=== PATIENT | female | born 1965 | race Caucasian/White ===

== ENCOUNTER 2016-10-06 04:57 | Day surgery (SDC) | payer OTHER, BC ==
[2016-10-01 15:00] VITALS: BMI 27.5
--- NOTE | 2016-10-05 15:26 | HP ---
[facility] - Chief Complaint Chief Complaint: This patient c/o very heavy periods causing anemia. The patient was also noted to have fibroids of the uterus. History of Present Illness: This patient has a long history of heavy vaginal bleeding causing anemia . 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: Alzheimer's, CVA, Dementia, Migraine, Multiple Sclerosis, Peripheral Neuropathy, Parkinson's, Seizure, Syncope, TIA, Vertigo, Other Cardiovascular: No: AFIB, Aneurysm, Aortic Insufficiency, Aortic Stenosis, CAD, CHF, Deep Vein Thrombosis, HTN, Hyperlipdemia, [place], Mitral Insufficiency, Mitral Stenosis, Murmur, Pulmonary Hypertension, Other Pulmonary: No: Asthma, Bronchitis, Cancer, COPD, O2 Dependent, Pneumonia, Previously Intubated, Pulmonary Embolus, Pulmonary Fibrosis, Sleep Apnea, Other Gastrointestinal: No: Ascites, Cancer, Constipation, Crohn's Disease, Diverticulitis, Diverticulosis, Esophageal Varices, Gastritis, GERD, GI Bleed, Hemorrhoids, Hiatal Hernia, Inflamatory Bowel Disease, Irritable Bowel Disease, Pancreatitis, Peptic Ulcer Disease, Ulcerative Colitis, Other Hepatobiliary: No: Cirrhosis, Cholelithiasis, Cholecystitis, Choledocholithiasis , Hepatitis A, Hepatitis B, Hepatitis C, Other Renal/: No: Renal Failure, Renal Inusuff, BPH, Cancer, Hematuria, Hemodialysis , Neurogenic Bladder, Renal Calculi, UTI, Other Reproductive: Yes: Fibroids ...LMP: 09/17/16 ...: No ...: 0 Heme/Onc: Yes: Anemia Infectious Disease: No: AIDS, C-Diff, Herpes Zoster, HIV, MRSA, STD's, Tuberculosis, VREF, Other Musculoskeletal: No: Bursitis, Chronic low back pain, Hemiparesis, Hemiplegia, Osteoarthritis, Paraplegia, Other Rheumatology: No: Fibromyalgia, Gout, Lupus, Rheumatoid Arthritis, Sarcoidosis, Vasculitis, Other ENT: No: Allergic Rhinitis, Sinusitis, Other Endocrine: Yes: Diabetes Mellitus Dermatology: No: Basal Cell, Cellulitis, Eczema, Melanoma, Psoriasis, Squamous Cell, Other Additional Medical History: Pt has a history of cardiac disease and was cleared for procedure by Dr. Chamorro.Pt also had multiple knee surgeries. - Current Medications Current Medications: Home Medications Medication Instructions Recorded Metformin HCl 1,700 mg PO DAILY 10/01/16 Metformin HCl 850 mg PO HS 10/01/16 Atorvastatin Ca [Lipitor] 40 mg PO DAILY 10/02/16 Gabapentin [Neurontin -] 100 mg PO TID 10/02/16 Glimepiride [Amaryl -] 4 mg PO BID 10/02/16 Glipizide ER 20 mg PO DAILY 10/02/16 Hydrocodone/Acetaminophen [Vicodin 1 tab PO PRN PRN 10/02/16 Es 7.5-300 mg Tablet] Linagliptin [Tradjenta] 5 mg PO DAILY 10/02/16 Metoprolol Succinate 50 mg PO BID 10/02/16 Omeprazole 40 mg PO BID 10/02/16 Zolpidem Tartrate [Ambien] 10 mg PO HS 10/02/16 Satellite Physical Exam - Physical Examination General Appearance: Well Nourished, Well Developed, Alert & Oriented x3 ENT: Clear, No Discharge, No masses Lung: Clear to auscultation Heart: Regular rate & rhythm, Normal S1, Normal S2 Breasts: Soft, Non-Tender, No masses bilaterally Abdomen: Soft, No tenderness, No CVA Extremities: No edema, No tenderness/swelling Pelvic Exam: Within normal limits External Genitalia, Within normal limits Vagina, Within normal limits Cervix, Within normal limits [place], Other Uterus (fibroids) Neurological: Intact, Alert, Oriented Satellite Impression/Plan - Impression/Plan Impression: menorrhagia with fibroids of uterus Operative Procedure: Hysteroscopy with D/C Date to be Performed: 10/06/16
[2016-10-06] MEDS ORDERED: MIDAZOLAM HCL 2 MG/2 ML SINGLE DOSE VIAL ONE (07:51)
[2016-10-06] MEDS ORDERED: ONDANSETRON 4 MG/2 ML VIAL ONE (09:23)
--- NOTE | 2016-10-06 09:36 | HP ---
DATE OF ADMISSION: 10/06/2016 PREOPERATIVE DIAGNOSIS: Menorrhagia, fibroid uterus. POSTOPERATIVE DIAGNOSIS: Menorrhagia, fibroid uterus. OPERATIVE PROCEDURE: Hysteroscopy with dilation and curettage. SURGEON: Trena Macedo MD ANESTHESIA: MAC given by anesthesiologist. ESTIMATED BLOOD LOSS: Approximately 5 mL. DESCRIPTION OF PROCEDURE: The patient was brought to the operating room and placed in the supine position, given anesthesia by the anesthesiologist, placed in the lithotomy position. She was prepped and draped in the usual manner for a dilation and curettage, hysteroscopy. The patient was examined. Uterus was noted to be markedly enlarged. Adnexa negative. The anterior lip of the cervix was grasped with a tenaculum. Uterus was sounded to 12 cm. The cervix was dilated with Elliott dilators. Hysteroscopy was performed. The endometrial lining appeared within the normal limits. There were no polyps noted, no fibroids noted. A dilation and curettage was carried out with a medium-sized curette. Tissue was obtained and sent to Pathology for analysis. An ECC was then obtained also by a medium-sized curette. The tissue was sent from the ECC to Pathology for analysis. The patient tolerated the procedure well. Hemostasis was good. The tenaculum was removed from the cervix, and the patient was then awakened by the anesthesiologist. The estimated blood loss was about 5 mL. The patient tolerated the procedure well and was transferred to the recovery room. TRENA MACEDO M.D. [id number]
[2016-10-06] MEDS ORDERED: ONDANSETRON 4 MG/2 ML VIAL IVPUSH ONE (10:47)
[2016-10-06 10:57] VITALS: BP 132/76; PULSE 92; TEMP 98.6
== END 2016-10-06 10:55 | disposition home or self-care (01) ==
LOC: JASU-SURG 04:57
PROVIDERS: ATTEND Obstetrics & Gynecology
PROC: 0UDB8ZX Extraction of Endometrium, Via Natural or Artificial Opening Endoscopic, Diagnostic (ICD-10-PCS; principal; 2016-10-06 08:00)
DX: N92.0 Excessive and frequent menstruation with regular cycle (principal); D25.9 Leiomyoma of uterus, unspecified
CPT/HCPCS: 84703; 88305-TC; 94760

== ENCOUNTER 2016-10-28 05:15 | Inpatient (IN) | payer OTHER, BC ==
[2016-10-27 14:42] VITALS: BMI 27.5
[2016-10-28] MEDS ORDERED: ROPIVACAINE HCL 0.5% 30ML VIAL ONE ×2 (07:21→15:25)
[2016-10-28] MEDS ORDERED: MIDAZOLAM HCL 2 MG/2 ML SINGLE DOSE VIAL ONE ×3 (07:24→12:38)
--- NOTE | 2016-10-28 09:15 | HP ---
Past Medical History - Primary Care Physician PCP:: Fabio Santos - Admission Chief Complaint: pelvic pain, fibroid uterus, irregular vaginal bleeding History Source: Patient Limitations to Obtaining History: No Limitations - Past Medical History Cardiovascular: Yes: HTN, Hyperlipdemia Gastrointestinal: Yes: GERD Heme/Onc: Yes: Anemia Psych: Yes: Anxiety Endocrine: Yes: Diabetes Mellitus Additional Medical History: Pt has a history of cardiac disease and was cleared for procedure by Dr. Chamorro.Pt also had multiple knee surgeries. - Past Surgical History Hx Myomectomy: No Hx Transabdominal Cerclage: No - Advance Directives Advance Directives: Yes: Living Will, Health Care Proxy - Smoking History Smoking history: Never smoked Have you smoked in the past 12 months: No - Alcohol/Substance Use Hx Alcohol Use: Yes (OCCAS) - Social History History of Recent Travel: No Home Medications - Allergies Allergies/Adverse Reactions: Allergies Allergy/AdvReac Type Severity Reaction Status Date / Time oxycodone HCl [From Percocet] Allergy Intermediate Nausea Verified 10/27/16 14: 53 ibuprofen AdvReac "STOMACH Verified 10/27/16 14:53 BLEEDING" naproxen sodium [From Aleve] AdvReac "STOMACH Verified 10/27/16 14:53 BLEEDING" - Home Medications Home Medications: Ambulatory Orders Metformin HCl 850 mg PO TID 10/01/16 Atorvastatin Ca [Lipitor] 40 mg PO DAILY 10/02/16 Gabapentin [Neurontin -] 100 mg PO TID 10/02/16 Glimepiride [Amaryl -] 4 mg PO BID 10/02/16 Hydrocodone/Acetaminophen [Vicodin Es 7.5-300 mg Tablet] 1 tab PO PRN PRN Linagliptin [Tradjenta] 5 mg PO DAILY 10/02/16 Omeprazole 40 mg PO BID 10/02/16 Zolpidem Tartrate [Ambien] 10 mg PO HS 10/02/16 Glipizide [Glipizide ER] 20 mg PO DAILY 10/27/16 Metoprolol Succinate [Toprol Xl] 50 mg PO BID 10/27/16 Diazepam 10 mg PO ONCE 10/28/16 Review of Systems - Review of Systems Constitutional: reports: Malaise Eyes: reports: No Symptoms HENT: reports: No Symptoms Neck: reports: No Symptoms Cardiovascular: reports: No Symptoms Respiratory: reports: No Symptoms Gastrointestinal: reports: Abdominal Pain Genitourinary: reports: Frequency Breasts: reports: No Symptoms Reported Musculoskeletal: reports: Back Pain, Muscle Cramps Integumentary: reports: No Symptoms Neurological: reports: No Symptoms Endocrine: reports: No Symptoms Hematology/Lymphatic: reports: No Symptoms Psychiatric: reports: Anxiety Physical Exam-MACHINE SETUP OPERATOR Constitutional: Yes: Obese Eyes: Yes: WNL, Conjunctiva Clear, EOM Intact HENT: Yes: WNL, Atraumatic, Normocephalic Neck: Yes: WNL, Supple, Trachea Midline Cardiovascular: Yes: WNL, Regular Rate and Rhythm Respiratory: Yes: WNL, Regular, CTA Bilaterally Gastrointestinal: Yes: WNL ...Rectal Exam: Yes: WNL Renal/: Yes: WNL Pelvis: Yes: WNL External Genitalia: Yes: Normal Internal Exam Deferred: No Vaginal Exam: Yes: Normal Cervix: Yes: Normal Uterus: Yes: Enlarged (multiple myomas), Lumpy, Mass Adnexa: Not Palpable: Left, Right Breast(s): Yes: WNL Musculoskeletal: Yes: WNL Extremities: Yes: WNL Edema: No Integumentary: Yes: WNL Neurological: Yes: WNL, Alert, Oriented ...Motor Strength: WNL Psychiatric: Yes: WNL, Alert, Oriented Problem List - Problem (1) Pelvic pain Code(s): R10.2 - PELVIC AND PERINEAL PAIN (2) Leiomyoma of body of uterus Code(s): D25.9 - LEIOMYOMA OF UTERUS, UNSPECIFIED Qualifiers: Uterine leiomyoma location: intramural and submucous Qualified Code( s): D25.1 - Intramural leiomyoma of uterus; D25.0 - Submucous leiomyoma of uterus (3) Anemia Code(s): D64.9 - ANEMIA, UNSPECIFIED Qualifiers: Anemia type: iron deficiency Assessment/Plan admit for supracervical abdominal hysterectomy, bilateral salpingectomy, posible BSO, rba toprcedure has discussed with patient in detail, all her questions were answered
[2016-10-28] MEDS ORDERED: PROPOFOL 20 ML ONE ×2 (09:23)
[2016-10-28] MEDS ORDERED: ROCURONIUM BROMIDE 50 MG/5 ML VIAL ONE ×2 (09:23→11:06)
[2016-10-28] MEDS ORDERED: SUCCINYLCHOLINE CHLORIDE 200 MG/10 ML VIAL ONE (09:23)
[2016-10-28] MEDS ORDERED: LIDOCAINE HCL/PF 2% SDV 5ML VIAL ONE (09:23)
[2016-10-28] MEDS ORDERED: ceFAZolin SODIUM 1 GM VIAL IVPB ONE (10:32)
[2016-10-28] MEDS ORDERED: DEXAMETHASONE SOD PHOSPHATE 4 MG/1 ML VIAL ONE ×2 (10:34→10:56)
[2016-10-28] MEDS ORDERED: ceFAZolin SODIUM 1 GM VIAL ONE (10:34)
[2016-10-28] MEDS ORDERED: SCOPOLAMINE HYDROBROMIDE 1 PATCH PATCH.TD72 ONE (10:36)
[2016-10-28] MEDS ORDERED: HYDROmorphone HCL/PF 1 MG/ML VIAL (FOR PYXIS CHARGING ONLY) ONE (10:43)
[2016-10-28] MEDS ORDERED: LABETALOL HCL 5 MG/1 ML (100MG/20 ML VIAL) ONE (10:53)
[2016-10-28] MEDS ORDERED: NEOSTIGMINE METHYLSULFATE 0.5 MG/ML - 10 ML MDV ONE (11:27)
[2016-10-28] MEDS ORDERED: GLYCOPYRROLATE 0.2 MG/1 ML VIAL ONE (11:27)
[2016-10-28] MEDS ORDERED: oxyCODONE HCL 5 MG TABLET PO PRN (11:49)
[2016-10-28] MEDS ORDERED: ACETAMINOPHEN 1000 MG/100 ML VIAL (NON FORMULARY) IVPB ONE ×2 (11:54→18:45)
[2016-10-28] MEDS ORDERED: HYDROmorphone *PCA* 10MG/50ML DISP.SYRIN PCA ONE (12:07)
[2016-10-28] MEDS ORDERED: HYDROmorphone HCL CARPU-JECT 2 MG/1 ML DISP.SYRIN ONE ×2 (12:14→12:49)
[2016-10-28] MEDS: HYDROmorphone HCL CARPU-JECT 1 MG/1 ML DISP.SYRIN IVPUSH PRN ×9 (12:15→13:26)
[2016-10-28] MEDS ORDERED: HYDROmorphone *PCA* 10MG/50ML DISP.SYRIN PCA SCH (12:30)
[2016-10-28] MEDS ORDERED: LACTATED RINGERS SOLUTION 1,000 ML IV SCH (12:30)
[2016-10-28] MEDS: MIDAZOLAM HCL 2 MG/2 ML SINGLE DOSE VIAL IVPUSH ONE ×2 (12:40→13:35)
--- NOTE | 2016-10-28 12:40 | OP ---
DATE OF OPERATION: 10/28/2016 PREOPERATIVE DIAGNOSIS: Pelvic pain, menorrhagia, anemia, fibroid uterus. POSTOPERATIVE DIAGNOSIS: Pelvic pain, menorrhagia, anemia, fibroid uterus. PROCEDURE: Supracervical abdominal hysteroscopy and bilateral salpingectomy. SURGEON: Brooke Santos MD MAINTENANCE MACHINE REPAIRER: Zack Maecdo MD ANESTHESIA: General. ESTIMATED BLOOD LOSS: 100 mL. FINDINGS: A large fibroid uterus. Both ovaries were normal. DESCRIPTION OF PROCEDURE: The patient was taken to the operating room. Under adequate general anesthesia, a Pfannenstiel abdominal skin incision was made. Abdominal wall was cut layer by layer until peritoneum was exposed and incised. Upon entering the abdominal cavity, upper abdomen was checked and was normal. Bowels were packed away. There was a large fibroid uterus seen. Both ovaries were normal. Both tubes were normal. Bladder was normal. No cul-de-sac adhesions. Then uterus and the fibroid was delivered to the surface. Bowels were packed away. Both cornual regions of the uterus was grasped with a Paulette clamp. Both round ligaments were identified, cauterized with bipolar LigaSure cautery, and cut. Anterior leaf of the broad ligament was opened, bladder was pushed out. Then the utero-ovarian ligament was grasped with Paulette clamp, cut, and the clamp replaced with 0 Vicryl suture bilaterally. At this time, the tubes were removed by cauterizing along the mesosalpinx, and both tubes were removed. Then the bladder was further pushed down. Both uterine arteries were identified bilaterally, clamped with Paulette clamp, cut, and the clamp replaced with 0 Vicryl suture bilaterally. Then the bladder was further pushed down. The paracervical area was grasped with Paulette clamp, cut, and the clamp replaced with 0 Vicryl suture bilaterally. Specimen was removed above the cervix. Then the cervix was sutured with continuous suture of 0 Vicryl. Hemostasis was established. Pelvic cavity was several times irrigated, and no active bleeding was seen. All of the laparotomy pad, sponge count, and instrument count were correct, and peritoneum was closed with 0 Biosyn continuous suture. Muscles were brought together with interrupted suture of 0 Biosyn. Fascia was closed with 0 Biosyn continuous suture. Subcutaneous fat with interrupted suture of 0 Biosyn. Skin was closed with 3-0 Biosyn subcuticular suture. The patient tolerated the procedure well and left the OR in good condition. BROOKE SANTOS M.D. [id number]
[2016-10-28] MEDS ORDERED: LABETALOL HCL 5 MG/1 ML (100MG/20 ML VIAL) IVPUSH ONE (13:16)
[2016-10-28] MEDS: LABETALOL HCL 5 MG/1 ML (100MG/20 ML VIAL) IVPUSH ONE ×2 (14:20→18:26)
[2016-10-28] MEDS: ELECTROLYTE-148 SOLN 1,000 ML IV SCH (17:00)
[2016-10-28] MEDS ORDERED: INSULIN (NOVOLOG) ASPART 100 UNITS/ML 10ML VIAL SQ ONE (17:45)
[2016-10-28] MEDS ORDERED: INSULIN SLIDING SCALE (NOVOLOG) 1 VIAL SQ ONE ×2 (17:45→18:00)
[2016-10-28] MEDS ORDERED: GLIMEPIRIDE 4 MG TABLET (FP) PO ONE (17:45)
[2016-10-28] MEDS: GABAPENTIN 100 MG CAPSULE (FP) PO SCH ×2 (17:54→21:27)
[2016-10-28] MEDS: PANTOPRAZOLE 40 MG TABLET (FP) PO SCH ×2 (17:54→21:25)
[2016-10-28] MEDS ORDERED: CEFAZOLIN (PRE-DOCKED) 1 GM in DEXTROSE 5%-WATER - 50 ML IVPB SCH (18:00)
[2016-10-28] MEDS: CEFAZOLIN (PRE-DOCKED) 50 ML IVPB SCH (18:09)
[2016-10-28] MEDS: METOPROLOL SUCCINATE 50 MG TAB.SR.24H (FP) PO SCH ×2 (18:18→21:25)
[2016-10-28] MEDS: ONDANSETRON 4 MG/2 ML VIAL IVPB PRN (19:39)
[2016-10-28] MEDS ORDERED: diazePAM 5 MG TABLET PO ONE (21:15)
[2016-10-28] MEDS: ATORVASTATIN CA 40 MG TABLET (FP) PO SCH (21:27)
[2016-10-28] MEDS ORDERED: ZOLPIDEM TARTRATE 5 MG TABLET ONE (23:18)
[2016-10-28] MEDS ORDERED: ZOLPIDEM TARTRATE 5 MG TABLET PO ONE (23:30)
[2016-10-29] MEDS: CEFAZOLIN (PRE-DOCKED) 50 ML IVPB SCH (01:23)
[2016-10-29] MEDS: ELECTROLYTE-148 SOLN 1,000 ML IV SCH ×2 (01:25→10:00)
[2016-10-29] MEDS: GLIMEPIRIDE 4 MG TABLET (FP) PO SCH ×2 (06:30→17:06)
[2016-10-29] MEDS: GABAPENTIN 100 MG CAPSULE (FP) PO SCH ×3 (06:31→21:59)
[2016-10-29] MEDS: INSULIN SLIDING SCALE (NOVOLOG) 1 VIAL SQ SCH ×4 (06:32→22:55)
[2016-10-29 07:48] LABS: MEAN CELL VOLUME 71.1 fl (80-96); MEAN PLT VOLUME 8.8 fl (7.5-11.1); PLATELET COUNT 308 K/MM3 (134-434); RDW 25.9 % (11.6-15.6); WHITE BLOOD COUNT 11.6 K/mm3 (4.0-10.0)
[2016-10-29 08:29] LABS: ALBUMIN 3.1 g/dl (3.4-5.0); ALK PHOS 61 U/L (45-117); ANION GAP 9 (8-16); BILIRUBIN,TOTAL 1.2 mg/dL (0.2-1.0); CALCIUM 8.6 mg/dL (8.5-10.1); CO2 26 mmol/L (21-32); CREATININE 0.4 mg/dL (0.55-1.02); GLUCOSE,RANDOM 189 mg/dL (74-106); SGOT/AST 12 U/L (15-37); SGPT/ALT 13 U/L (12-78); TOT PROT 5.4 g/dl (6.4-8.2)
[2016-10-29 08:48] LABS: PLATELET ESTIMATE ADEQUATE (NORMAL)
[2016-10-29] MEDS ORDERED: ACETAMINOPHEN 1000 MG/100 ML VIAL (NON FORMULARY) IVPB ONE (09:45)
[2016-10-29] MEDS: ENOXAPARIN NA (PORCINE) 40 MG/0.4 ML DISP.SYRIN SQ SCH (10:28)
[2016-10-29] MEDS: METOPROLOL SUCCINATE 50 MG TAB.SR.24H (FP) PO SCH ×2 (10:29→21:59)
[2016-10-29] MEDS: PANTOPRAZOLE 40 MG TABLET (FP) PO SCH ×2 (10:29→21:59)
--- NOTE | 2016-10-29 10:39 | PN ---
Progress Note (short form) - Note Progress Note: pod 1 s/o supracervical abdominal hysterectomy c/o low abdominal pain, Current Medications Generic Name Dose Route Start Last Admin Trade Name Yolanda PRN Reason Stop Dose Admin Atorvastatin Calcium 40 mg 10/28/16 22:00 10/28/16 21:27 Lipitor - PO 40 mg HS HAMILTON Administration Enoxaparin Sodium 40 mg 10/29/16 10:00 10/29/16 10:28 Lovenox - SQ 40 mg DAILY HAMILTON Administration Gabapentin 100 mg 10/28/16 14:00 10/29/16 06:31 Neurontin - PO 100 mg TID HAMILTON Administration Glimepiride 4 mg 10/28/16 16:30 10/29/16 06:30 Amaryl - PO 4 mg BIDAC HAMILTON Administration Hydromorphone HCl 0 mg 10/28/16 12:30 Dilaudid Handle Bender - TAX ACCOUNTANT 10/31/16 12:23 TAX ACCOUNTANT COUNTS INCLUDE 234 BEDS AT THE [facility] Protocol Parenteral Electrolytes 1,000 mls @ 125 mls/hr 10/28/16 12:00 10/29/16 01:25 Plasma-Lyte 148 - IV 125 mls/hr ASDIR HAMILTON Administration Insulin Aspart 1 vial 10/29/16 07:00 10/29/16 06:32 Novolog Vial Sliding Scale - SQ Not Given ACHS COUNTS INCLUDE 234 BEDS AT THE [facility] Protocol Metoprolol Succinate 50 mg 10/28/16 10:00 10/29/16 10:29 Toprol Xl - PO 50 mg BID HAMILTON Administration Ondansetron HCl 4 mg 10/28/16 11:49 10/28/16 19:39 Zofran Injection IVPB 4 mg Q6H PRN Administration NAUSEA Pantoprazole Sodium 40 mg 10/28/16 10:00 10/29/16 10:29 Protonix - PO 40 mg BID HAMILTON Administration Last Vital Signs Temp Pulse Resp BP Pulse Ox 98.9 F 96 H 18 145/87 97 10/29/16 06:00 10/29/16 06:00 10/29/16 06:00 10/29/16 06:00 10/28/16 21:00 CBC, BMP 10/29/16 07:00 10/29/16 07:00 abdomen soft, no distension, no cva . BS present incision dry, clean no calf tenderness no vaginal bleeding impression pod 1, afebrile, has very low pain threshold . clinically well, plan ambulate, advance diet, d/c acosta Problem List - Problems (1) Pelvic pain Code(s): R10.2 - PELVIC AND PERINEAL PAIN (2) Leiomyoma of body of uterus Code(s): D25.9 - LEIOMYOMA OF UTERUS, UNSPECIFIED Qualifiers: Uterine leiomyoma location: intramural and submucous Qualified Code( s): D25.1 - Intramural leiomyoma of uterus (3) Anemia Code(s): D64.9 - ANEMIA, UNSPECIFIED Qualifiers: Anemia type: iron deficiency
[2016-10-29] MEDS ORDERED: BISACODYL 5 MG TABLET.DR (FP) PO ONE (11:00)
[2016-10-29] MEDS ORDERED: oxyCODONE HCL 5 MG TABLET ONE (11:21)
[2016-10-29] MEDS: SIMETHICONE 80 MG TAB.CHEW (FP) PO PRN ×2 (11:24→17:21)
[2016-10-29] MEDS: oxyCODONE HCL 5 MG TABLET PO PRN ×3 (11:25→22:47)
[2016-10-29] MEDS: ONDANSETRON 4 MG/2 ML VIAL IVPB PRN (11:43)
[2016-10-29] MEDS ORDERED: LORazepam 2 MG/ML SDV VIAL ONE (12:16)
[2016-10-29] MEDS ORDERED: IBUPROFEN 800 MG/8 ML IJ IVPB PRN (12:26)
--- NOTE | 2016-10-29 12:31 | CONSULT ---
Consult Consult Specialty:: Internal Medicine Referred by:: Herminio Reason for Consultation:: Medical postop f/u. DM management - History of Present Illness History of Present Illness: Pt with Hx/o DM (on medication at home), Anemia, HTN, , HLP, Anxiety, Insomnia, Uterin fibroid, vaginal bleed admitted for Hysterectomy. Pt is c/o lower abd pain, refusing to take Insulin because "is not working". - History Source History Provided By: Patient Limitations to Obtaining History: No Limitations - Past Medical History Cardio/Vascular: Yes: HTN, Hyperlipdemia Gastrointestinal: Yes: GERD ...LMP: 10/06/16 Psych: Yes: Anxiety Endocrine: Yes: Diabetes Mellitus Additional Medical History: Pt has a history of cardiac disease and was cleared for procedure by Dr. Chamorro.Pt also had multiple knee surgeries. - Past Surgical History Additional Surgical History: Knee surgery - Alcohol/Substance Use Hx Alcohol Use: Yes (OCCAS) - Smoking History Smoking history: Never smoked Have you smoked in the past 12 months: No - Social History History of Recent Travel: No Home Medications - Allergies Allergies/Adverse Reactions: Allergies Allergy/AdvReac Type Severity Reaction Status Date / Time oxycodone HCl [From Percocet] Allergy Intermediate Nausea Verified 10/27/16 14: 53 ibuprofen AdvReac "STOMACH Verified 10/27/16 14:53 BLEEDING" naproxen sodium [From Aleve] AdvReac "STOMACH Verified 10/27/16 14:53 BLEEDING" - Home Medications Home Medications: Ambulatory Orders Metformin HCl 850 mg PO TID 10/01/16 Atorvastatin Ca [Lipitor] 40 mg PO DAILY 10/02/16 Gabapentin [Neurontin -] 100 mg PO TID 10/02/16 Glimepiride [Amaryl -] 4 mg PO BID 10/02/16 Hydrocodone/Acetaminophen [Vicodin Es 7.5-300 mg Tablet] 1 tab PO PRN PRN Linagliptin [Tradjenta] 5 mg PO DAILY 10/02/16 Omeprazole 40 mg PO BID 10/02/16 Zolpidem Tartrate [Ambien] 10 mg PO HS 10/02/16 Glipizide [Glipizide ER] 20 mg PO DAILY 10/27/16 Metoprolol Succinate [Toprol Xl] 50 mg PO BID 10/27/16 Diazepam 10 mg PO ONCE 10/28/16 Review of Systems - Review of Systems Constitutional: denies: Chills, Fever Eyes: denies: Blurred Vision, Double Vision HENT: denies: Difficult Swallowing Cardiovascular: denies: Chest Pain, Edema, Palpitations Respiratory: denies: Cough, SOB, Wheezing Gastrointestinal: reports: Abdominal Pain (lower abdomen), Nausea. denies: Diarrhea, Vomiting Genitourinary: denies: Burning, Discharge Musculoskeletal: denies: Back Pain Integumentary: denies: Bruising, Change in Color Neurological: denies: Confusion, Incoordination, Tremors Endocrine: denies: Excessive Sweating, Intolerance to Cold Hematology/Lymphatic: denies: Easily Bruised, Excessive Bleeding Psychiatric: reports: Anxiety. denies: Depression Physical Exam Vital Signs: Vital Signs Temperature 98.9 F 10/29/16 06:00 Pulse Rate 96 H 10/29/16 06:00 Respiratory Rate 18 10/29/16 06:00 Blood Pressure 145/87 10/29/16 06:00 O2 Sat by Pulse Oximetry (%) 97 10/28/16 21:00 Constitutional: Yes: Mild Distress Eyes: Yes: Conjunctiva Clear, EOM Intact HENT: Yes: Normocephalic. No: Rhinnorhea Neck: Yes: Trachea Midline. No: Lymphadenopathy Cardiovascular: Yes: Regular Rate and Rhythm, S1, S2 Respiratory: Yes: Regular, CTA Bilaterally Gastrointestinal: Yes: Normal Bowel Sounds, Soft, Tenderness ...Rectal Exam: Yes: Deferred Breast(s): Yes: Other (deferred) Musculoskeletal: No: Joint Stiffness, Joint Swelling Edema: No Integumentary: No: Bruising, Erythema, Rash Neurological: Yes: Oriented, Other (symmetric motor in UE/ LE/ face.) Psychiatric: Yes: Alert, Oriented Labs: CBC, BMP 10/29/16 07:00 10/29/16 07:00 Problem List - Problems (1) Menorrhagia Code(s): N92.0 - EXCESSIVE AND FREQUENT MENSTRUATION WITH REGULAR CYCLE (2) Leiomyoma of body of uterus Code(s): D25.9 - LEIOMYOMA OF UTERUS, UNSPECIFIED Qualifiers: Uterine leiomyoma location: intramural and submucous Qualified Code( s): D25.1 - Intramural leiomyoma of uterus (3) Pelvic pain Code(s): R10.2 - PELVIC AND PERINEAL PAIN (4) Diabetes mellitus Code(s): E11.9 - TYPE 2 DIABETES MELLITUS WITHOUT COMPLICATIONS (5) Anxiety Code(s): F41.9 - ANXIETY DISORDER, UNSPECIFIED (6) Insomnia Code(s): G47.00 - INSOMNIA, UNSPECIFIED (7) Hypertension Code(s): I10 - ESSENTIAL (PRIMARY) HYPERTENSION (8) Hyperlipidemia Code(s): E78.5 - HYPERLIPIDEMIA, UNSPECIFIED Assessment/Plan Pt is s/p hysterectomy with postop abd pain- managed by anesthesia. Continue BGM and SS coverage with insulin- if pt agrees. Pt with minimal PO intake, refusing to have diet changed from regular (to ADA, low salt, low cholesterol). I encouraged to increase PO fluid intake. DVT proph. GI proph. Because of significant pain and poor controlled DM (pt doesn't routinely checks BGM and using Insulin SS coverage) pt might not be able to go home today. AM BMP
--- NOTE | 2016-10-29 12:37 | PN ---
Progress Note (short form) - Note Progress Note: Post op day#1.S/P YO under GA with bilateral TAP block.Patient on Dilaudid BID CLERK which was DC this morning as it was not helping her as per patient.Patient stable and c/o pain score of 10/10So put patient on Dilaudid prn,Caldolor prn and Ativan prn.Also patient was put on ambian.No any anesthesia related problem.Patient DC from the anesthesia care.
[2016-10-29] MEDS ORDERED: ACETAMINOPHEN 325 MG TABLET (FP) ONE (17:18)
[2016-10-29] MEDS: ACETAMINOPHEN 325 MG TABLET (FP) PO PRN ×2 (17:20→22:48)
[2016-10-29] MEDS: HYDROmorphone HCL CARPU-JECT 2 MG/1 ML DISP.SYRIN IVPB PRN (19:57)
[2016-10-29] MEDS: ATORVASTATIN CA 40 MG TABLET (FP) PO SCH (21:59)
[2016-10-29] MEDS: ZOLPIDEM TARTRATE 5 MG TABLET PO SCH (21:59)
[2016-10-29] MEDS: LORazepam 2 MG/ML SDV VIAL IM PRN (22:53)
[2016-10-30] MEDS: HYDROmorphone HCL CARPU-JECT 2 MG/1 ML DISP.SYRIN IVPB PRN ×2 (05:16→11:07)
[2016-10-30] MEDS: ONDANSETRON 4 MG/2 ML VIAL IVPB PRN ×2 (05:28→11:49)
[2016-10-30] MEDS: GABAPENTIN 100 MG CAPSULE (FP) PO SCH ×3 (06:18→22:07)
[2016-10-30] MEDS: GLIMEPIRIDE 4 MG TABLET (FP) PO SCH ×2 (07:03→16:37)
[2016-10-30] MEDS: INSULIN SLIDING SCALE (NOVOLOG) 1 VIAL SQ SCH ×2 (07:05→22:00)
[2016-10-30] MEDS: oxyCODONE HCL 5 MG TABLET PO PRN ×4 (07:23→22:36)
[2016-10-30] MEDS: SIMETHICONE 80 MG TAB.CHEW (FP) PO PRN ×4 (07:23→22:12)
[2016-10-30] MEDS: ACETAMINOPHEN 325 MG TABLET (FP) PO PRN ×4 (07:24→22:12)
[2016-10-30 08:48] LABS: ANION GAP 7 (8-16); CALCIUM 9.1 mg/dL (8.5-10.1); CO2 25 mmol/L (21-32); CREATININE 0.6 mg/dL (0.55-1.02); GLUCOSE,RANDOM 299 mg/dL (74-106)
[2016-10-30] MEDS: PANTOPRAZOLE 40 MG TABLET (FP) PO SCH ×2 (10:05→22:08)
[2016-10-30] MEDS: ENOXAPARIN NA (PORCINE) 40 MG/0.4 ML DISP.SYRIN SQ SCH (10:05)
[2016-10-30] MEDS: METOPROLOL SUCCINATE 50 MG TAB.SR.24H (FP) PO SCH ×2 (10:05→22:08)
--- NOTE | 2016-10-30 10:08 | PN ---
Progress Note, Physician History of Present Illness: Pt with lower abd pain. Pt w/o SOB, CP, palp, dizziness, vomiting - Current Medication List Current Medications: Active Medications Acetaminophen (Tylenol -) 650 mg PO Q4H PRN PRN Reason: FEVER OR PAIN Last Admin: 10/30/16 07:24 Dose: 650 mg Atorvastatin Calcium (Lipitor -) 40 mg PO HS [facility] Last Admin: 10/29/16 21:59 Dose: 40 mg Enoxaparin Sodium (Lovenox -) 40 mg SQ DAILY [facility] Last Admin: 10/29/16 10:28 Dose: 40 mg Gabapentin (Neurontin -) 100 mg PO TID [facility] Last Admin: 10/30/16 06:18 Dose: 100 mg Glimepiride (Amaryl -) 4 mg PO BIDAC [facility] Last Admin: 10/30/16 07:03 Dose: 4 mg Glipizide (Glucotrol Xl -) 20 mg PO DAILY [facility] Hydromorphone HCl (Dilaudid Injection -) 2 mg IVPB Q4H PRN PRN Reason: PAIN Last Admin: 10/30/16 05:16 Dose: 2 mg Parenteral Electrolytes (Plasma-Lyte 148 -) 1,000 mls @ 125 mls/hr IV ASDIR [facility] Last Admin: 10/29/16 10:00 Dose: 125 mls/hr Ibuprofen (Caldolor Injection -) 600 mg IVPB Q6H PRN PRN Reason: FEVER Last Admin: 10/29/16 13:08 Dose: 600 mg Insulin Aspart (Novolog Vial Sliding Scale -) 1 vial SQ ACHS [facility] PRN Reason: Protocol Last Admin: 10/30/16 07:05 Dose: Not Given Lorazepam (Ativan Injection -) 1 mg IM Q6H PRN PRN Reason: ANXIETY Last Admin: 10/29/16 22:53 Dose: 1 mg Metformin HCl (Glucophage -) 850 mg PO TIDAC [facility] Last Admin: 10/30/16 07:02 Dose: 850 mg Metoprolol Succinate (Toprol Xl -) 50 mg PO BID [facility] Last Admin: 10/29/16 21:59 Dose: 50 mg Ondansetron HCl (Zofran Injection) 4 mg IVPB Q6H PRN PRN Reason: NAUSEA Last Admin: 10/30/16 05:28 Dose: 4 mg Oxycodone HCl (Roxicodone -) 10 mg PO Q4H PRN Last Admin: 10/30/16 07:23 Dose: 10 mg Pantoprazole Sodium (Protonix -) 40 mg PO BID [facility] Last Admin: 10/29/16 21:59 Dose: 40 mg Simethicone (Mylicon -) 80 mg PO Q4H PRN PRN Reason: GAS Last Admin: 10/30/16 07:23 Dose: 80 mg Zolpidem Tartrate (Ambien -) 10 mg PO HS [facility] Last Admin: 10/29/16 21:59 Dose: 10 mg - Objective Vital Signs: Vital Signs Temperature 98.3 F 10/30/16 08:04 Pulse Rate 110 H 10/30/16 08:04 Respiratory Rate 20 10/30/16 08:04 Blood Pressure 130/76 10/30/16 08:04 O2 Sat by Pulse Oximetry (%) 95 10/29/16 17:15 Constitutional: Yes: No Distress Cardiovascular: Yes: Regular Rate and Rhythm, Tachycardia, S1, S2 Respiratory: Yes: Regular, CTA Bilaterally. No: Rales Gastrointestinal: Yes: Normal Bowel Sounds, Soft, Tenderness Edema: No Neurological: Yes: Alert, Oriented Labs: CBC, BMP 10/29/16 07:00 10/30/16 07:30 Problem List - Problems (1) Menorrhagia Code(s): N92.0 - EXCESSIVE AND FREQUENT MENSTRUATION WITH REGULAR CYCLE (2) Leiomyoma of body of uterus Code(s): D25.9 - LEIOMYOMA OF UTERUS, UNSPECIFIED Qualifiers: Uterine leiomyoma location: intramural and submucous Qualified Code( s): D25.1 - Intramural leiomyoma of uterus (3) Pelvic pain Code(s): R10.2 - PELVIC AND PERINEAL PAIN (4) Diabetes mellitus Code(s): E11.9 - TYPE 2 DIABETES MELLITUS WITHOUT COMPLICATIONS (5) Anxiety Code(s): F41.9 - ANXIETY DISORDER, UNSPECIFIED (6) Insomnia Code(s): G47.00 - INSOMNIA, UNSPECIFIED (7) Hypertension Code(s): I10 - ESSENTIAL (PRIMARY) HYPERTENSION (8) Hyperlipidemia Code(s): E78.5 - HYPERLIPIDEMIA, UNSPECIFIED Assessment/Plan Pt is s/p hysterectomy with postop abd pain- managed by anesthesia. Continue BGM and SS coverage with insulin- if pt agrees. To addd glipizide ER; monitor BGM I recommended to pt to increase PO intake. DVT proph. GI proph.
[2016-10-30] MEDS: glipiZIDE-XL 10 MG TAB.ER.24 (FP) PO SCH (11:19)
[2016-10-30] MEDS: ELECTROLYTE-148 SOLN 1,000 ML IV SCH (13:54)
--- NOTE | 2016-10-30 16:35 | PATH ---
Surgical Pathology Report Patient Name: DANIEL IJMENEZ [facility]. Rec. #: [id number] /Age/Gender: 1965 (Age: 51) / F Account: [id number] Location: [facility] OBS/PHOTOGEOLOGIST Taken: 10/28/2016 Received: 10/28/2016 Reported: 10/30/2016 Physicians: Fabio Santos M.D. Specimen(s) Received UTERUS, PART OF CERVIX, BILATERAL FALLOPIAN TUBES Clinical History Menorrhagia Final Diagnosis UTERUS, PART OF CERVIX, BILATERAL FALLOPIAN TUBES, ABDOMINAL HYSTERECTOMY, SALPINGECTOMY: PORTION OF CERVIX: WITHOUT SIGNIFICANT PATHOLOGIC CHANGES. ENDOMETRIUM: LATE PROLIFERATIVE/INTERVAL ENDOMETRIUM. MYOMETRIUM: LEIOMYOMATA WITH FOCAL DEGENERATIVE CHANGES (LARGEST 8.0 CM). UTERINE SEROSA: WITHOUT SIGNIFICANT PATHOLOGIC CHANGES. FALLOPIAN TUBES: FOCAL FIBRINOHEMORRHAGIC ADHESIONS. Electronically Signed José Manuel Rodriguez M.D. Gross Description Received in formalin labeled "uterus, fallopian tubes" is a 1017 g supracervically amputated uterus with no attached adnexa. The bilateral, undesignated fallopian tubes are separately received within the same container. The specimen measures 15 cm from superior to inferior, 12.5 cm from anterior to posterior and 11 cm from left to right. The serosa is solorio-el with focal subserosal nodules. The endometrial cavity measures 8 cm in length and 3 cm from cornu to cornu. The endometrium is solorio-red an average of 0.2 cm in thickness. The myometrium displays an 8 cm in greatest dimension intramural nodule. The cut surface of the subserosal nodules and intramural nodule is solorio, firm to rubbery with whorled architecture. The remaining myometrium is solorio and averages 6 cm in thickness. The undesignated, fimbriated fallopian tubes average 3.5 cm in length. The outer surfaces are solorio-winston and smooth. Sectioning reveals unremarkable lumens. [employer] sections are submitted in 14 cassettes as follows: 1-cervical stump margin of resection; 5-1-pmrxqsvx endomyometrium; 3-6-uzwrduzev endomyometrium; 6-subserosal nodules; 8-66-svyswqczvs nodule; 11-arbitrarily designated fallopian tube 1 fimbria; 12-cross sections of fallopian tube 1; 13-arbitrarily designated fallopian tube 2 fimbria; 14-cross sections of fallopian tube 2. 10/29/201610/29/2016
[2016-10-30] MEDS ORDERED: MAGNESIUM HYDROX 2400MG/30ML ORAL SUSPENSION 30 ML CUP PO PRN (21:18)
--- NOTE | 2016-10-30 21:18 | PN ---
Progress Note (short form) - Note Progress Note: pod 2 . passing gas, no BM,still has a lot of abdominal pain, no BM, voids ok Last Vital Signs Temp Pulse Resp BP Pulse Ox 98.1 F 87 20 128/79 95 10/30/16 17:30 10/30/16 17:30 10/30/16 17:30 10/30/16 17:30 10/29/16 17:15 Current Medications Generic Name Dose Route Start Last Admin Trade Name Freq PRN Reason Stop Dose Admin Acetaminophen 650 mg 10/29/16 17:46 10/30/16 18:01 Tylenol - PO 650 mg Q4H PRN Administration FEVER OR PAIN Atorvastatin Calcium 40 mg 10/28/16 22:00 10/29/16 21:59 Lipitor - PO 40 mg HS [facility] Administration Enoxaparin Sodium 40 mg 10/29/16 10:00 10/30/16 10:05 Lovenox - SQ 40 mg DAILY [facility] Administration Gabapentin 100 mg 10/28/16 14:00 10/30/16 13:55 Neurontin - PO 100 mg TID [facility] Administration Glimepiride 4 mg 10/28/16 16:30 10/30/16 16:37 Amaryl - PO 4 mg BIDAC [facility] Administration Glipizide 20 mg 10/30/16 10:15 10/30/16 11:19 Glucotrol Xl - PO 20 mg DAILY@0700 [facility] Administration Hydromorphone HCl 2 mg 10/29/16 12:27 10/30/16 11:07 Dilaudid Injection - IVPB 2 mg Q4H PRN Administration PAIN Parenteral Electrolytes 1,000 mls @ 125 mls/hr 10/28/16 12:00 10/30/16 13:54 Plasma-Lyte 148 - IV Not Given ASDIR [facility] Ibuprofen 600 mg 10/29/16 12:26 10/29/16 13:08 Caldolor Injection - IVPB 600 mg Q6H PRN Administration FEVER Insulin Aspart 1 vial 10/30/16 22:00 Novolog Vial Sliding Scale - SQ BID [facility] Protocol Lorazepam 1 mg 10/29/16 13:20 10/29/16 22:53 Ativan Injection - IM 1 mg Q6H PRN Administration ANXIETY Metformin HCl 850 mg 10/29/16 16:30 10/30/16 16:37 Glucophage - PO 850 mg TIDAC [facility] Administration Metoprolol Succinate 50 mg 10/28/16 10:00 10/30/16 10:05 Toprol Xl - PO 50 mg BID [facility] Administration Ondansetron HCl 4 mg 10/28/16 11:49 10/30/16 11:49 Zofran Injection IVPB 4 mg Q6H PRN Administration NAUSEA Oxycodone HCl 10 mg 10/29/16 11:23 10/30/16 18:01 Roxicodone - PO 10 mg Q4H PRN Administration Pantoprazole Sodium 40 mg 10/28/16 10:00 10/30/16 10:05 Protonix - PO 40 mg BID [facility] Administration Simethicone 80 mg 10/29/16 10:41 10/30/16 18:01 Mylicon - PO 80 mg Q4H PRN Administration GAS Zolpidem Tartrate 10 mg 10/29/16 22:00 10/29/16 21:59 Ambien - PO 10 mg HS [facility] Administration abdomen soft, no distension, no cva, BS present, incision dry no calf tenderness stii taking dilaudid iv ,advised stop iv pain meds switch to po Problem List - Problems (1) Pelvic pain Code(s): R10.2 - PELVIC AND PERINEAL PAIN (2) Leiomyoma of body of uterus Code(s): D25.9 - LEIOMYOMA OF UTERUS, UNSPECIFIED Qualifiers: Uterine leiomyoma location: intramural and submucous Qualified Code( s): D25.1 - Intramural leiomyoma of uterus (3) Anemia Code(s): D64.9 - ANEMIA, UNSPECIFIED Qualifiers: Anemia type: iron deficiency
[2016-10-30] MEDS: ZOLPIDEM TARTRATE 5 MG TABLET PO SCH (22:08)
[2016-10-30] MEDS: ATORVASTATIN CA 40 MG TABLET (FP) PO SCH (22:08)
[2016-10-30] MEDS ORDERED: oxyCODONE HCL 5 MG TABLET PO PRN (22:27)
[2016-10-30] MEDS: LORazepam 2 MG/ML SDV VIAL IM PRN (23:15)
[2016-10-31] MEDS: oxyCODONE HCL 5 MG TABLET PO PRN ×2 (04:55→11:36)
[2016-10-31] MEDS: SIMETHICONE 80 MG TAB.CHEW (FP) PO PRN ×2 (04:55→11:36)
[2016-10-31] MEDS: ACETAMINOPHEN 325 MG TABLET (FP) PO PRN ×2 (04:56→11:36)
[2016-10-31] MEDS: GABAPENTIN 100 MG CAPSULE (FP) PO SCH ×2 (06:16→13:57)
[2016-10-31] MEDS: GLIMEPIRIDE 4 MG TABLET (FP) PO SCH (07:04)
[2016-10-31] MEDS: glipiZIDE-XL 10 MG TAB.ER.24 (FP) PO SCH (07:04)
--- NOTE | 2016-10-31 07:27 | PN ---
Progress Note (short form) - Note Progress Note: pod 3 still has low abdominal pain but getting better, voids ok CBC, BMP 10/29/16 07:00 10/30/16 07:30 Last Vital Signs Temp Pulse Resp BP Pulse Ox 98.4 F 99 H 20 132/82 95 10/30/16 22:00 10/30/16 22:00 10/30/16 22:00 10/30/16 22:00 10/29/16 17:15 abdomen soft, BS present, incision dry, clean no calf tenderness plan d/c home on po oxy , follow up office 2 weeks, instruction given Problem List - Problems (1) Pelvic pain Code(s): R10.2 - PELVIC AND PERINEAL PAIN (2) Leiomyoma of body of uterus Code(s): D25.9 - LEIOMYOMA OF UTERUS, UNSPECIFIED Qualifiers: Uterine leiomyoma location: intramural and submucous Qualified Code( s): D25.1 - Intramural leiomyoma of uterus (3) Anemia Code(s): D64.9 - ANEMIA, UNSPECIFIED Qualifiers: Anemia type: iron deficiency
--- NOTE | 2016-10-31 07:34 | DS ---
Physical Exam-[employer] Vital Signs: Vital Signs Temperature 98.4 F 10/30/16 22:00 Pulse Rate 99 H 10/30/16 22:00 Respiratory Rate 20 10/30/16 22:00 Blood Pressure 132/82 10/30/16 22:00 O2 Sat by Pulse Oximetry (%) 95 10/29/16 17:15 Constitutional: Yes: Well Nourished, No Distress, Calm Eyes: Yes: WNL, Conjunctiva Clear, EOM Intact HENT: Yes: WNL, Atraumatic, Normocephalic Neck: Yes: WNL, Supple, Trachea Midline Cardiovascular: Yes: WNL, Regular Rate and Rhythm Respiratory: Yes: WNL, Regular, CTA Bilaterally Gastrointestinal: Yes: WNL ...Rectal Exam: Yes: WNL Renal/: Yes: WNL Pelvis: Yes: WNL External Genitalia: Yes: Normal Breast(s): Yes: WNL Musculoskeletal: Yes: WNL Extremities: Yes: WNL Integumentary: Yes: WNL Wound/Incision: Yes: Clean/Dry, Well Approximated, Sutures Intact Neurological: Yes: WNL, Alert, Oriented ...Motor Strength: WNL Psychiatric: Yes: WNL, Alert, Oriented Labs: CBC, BMP 10/29/16 07:00 10/30/16 07:30 Discharge Summary Reason For Visit: MENORRHAGIA Current Active Problems Anemia (Acute) Anxiety (Acute) Diabetes mellitus (Acute) Hyperlipidemia (Acute) Hypertension (Acute) Insomnia (Acute) Leiomyoma of body of uterus (Acute) Menorrhagia (Acute) Pelvic pain (Acute) Procedures: Principal: supracervical abdominal hysterectomy, bilateral salpingectomy Hospital Course: uneventful - Instructions Referrals: Mark Patterson MD [Staff Physician] - Fabio Santos MD [Staff Physician] - - Home Medications Comprehensive Discharge Medication List: Ambulatory Orders Metformin HCl 850 mg PO TID 10/01/16 Atorvastatin Ca [Lipitor] 40 mg PO DAILY 10/02/16 Gabapentin [Neurontin -] 100 mg PO TID 10/02/16 Glimepiride [Amaryl -] 4 mg PO BID 10/02/16 Hydrocodone/Acetaminophen [Vicodin Es 7.5-300 mg Tablet] 1 tab PO PRN PRN Linagliptin [Tradjenta] 5 mg PO DAILY 10/02/16 Omeprazole 40 mg PO BID 10/02/16 Zolpidem Tartrate [Ambien] 10 mg PO HS 10/02/16 Glipizide [Glipizide ER] 20 mg PO DAILY 10/27/16 Metoprolol Succinate [Toprol Xl] 50 mg PO BID 10/27/16 Diazepam 10 mg PO ONCE 10/28/16 Oxycodone HCl/Acetaminophen [Oxycodone-Acetaminophen 10-325] 1 each PO QID PRN # 20 tablet MDD 4 10/30/16
[2016-10-31 08:39] VITALS: BP 129/82; PULSE 91; TEMP 98.6
[2016-10-31] MEDS: ENOXAPARIN NA (PORCINE) 40 MG/0.4 ML DISP.SYRIN SQ SCH (10:10)
[2016-10-31] MEDS: PANTOPRAZOLE 40 MG TABLET (FP) PO SCH (10:10)
[2016-10-31] MEDS: METOPROLOL SUCCINATE 50 MG TAB.SR.24H (FP) PO SCH (10:10)
[2016-10-31] MEDS: INSULIN SLIDING SCALE (NOVOLOG) 1 VIAL SQ SCH (10:22)
== END 2016-10-31 14:15 | disposition home or self-care (01) | DRG 743 ==
LOC: JSAMEDAYSX 05:15 → EDSTATUS 09:30 → J3W 17:00
PROVIDERS: ADMIT Obstetrics & Gynecology; ATTEND Obstetrics & Gynecology
PROC: 0UTC0ZZ Resection of Cervix, Open Approach (ICD-10-PCS; 2016-10-28)
PROC: 0UT70ZZ Resection of Bilateral Fallopian Tubes, Open Approach (ICD-10-PCS; 2016-10-28)
PROC: 0UT90ZZ Resection of Uterus, Open Approach (ICD-10-PCS; principal; 2016-10-28 09:30)
DX: D25.0 Submucous leiomyoma of uterus (principal); D64.9 Anemia, unspecified; I10 Essential (primary) hypertension; E78.5 Hyperlipidemia, unspecified; K21.9 Gastro-esophageal reflux disease without esophagitis; E11.9 Type 2 diabetes mellitus without complications; F41.0 Panic disorder [episodic paroxysmal anxiety]; G47.00 Insomnia, unspecified; N92.0 Excessive and frequent menstruation with regular cycle; R10.2 Pelvic and perineal pain; M51.26 Other intervertebral disc displacement, lumbar region
CPT/HCPCS: 36415; 80048; 80053; 84703; 85027; 88307-TC; 94010; 94760